=== PATIENT | male | born 1945 | race Caucasian/White ===

== ENCOUNTER 2023-02-04 23:17 | Emergency (ER) | payer MEDICARE ==
[~2023-02-04] VITALS: Ht 170.2 cm; Wt 75.0 kg
[2023-02-04 23:29] VITALS: TEMP 98.2
[2023-02-04] MEDS ORDERED: ondansetron/PF 4mg/2ml inj IV STA (23:38)
[2023-02-04] MEDS ORDERED: morphine 4 MG/ML inj SYRINge IV STA (23:38)
--- NOTE | 2023-02-04 23:41 | NUR ---
PT HAD CALLED TECH TO GO TO THE BATHROOM, THAN HE COULDNT VOID. 120 MLS IN THE BLADDER. HE IS BREATHING FAST, HE SAYS IT IS BECAUSE HE IS VERY ANXIOUS AND IN A LOT OF PAIN. HE SAID HE GETS THIS WAY WHEN HE IS ANXIOUS AND THAT HE TAKES MEDS FOR IT.
--- NOTE | 2023-02-05 03:23 | NUR ---
HE WANTED TO URINATE BUT WANTED A MALE MALE SENT IN HE IS NOT ABLE TO URINATE AGAIN
[2023-02-05] MEDS ORDERED: ketorolac trometh. 30mg/ml inj. IV ONE (03:40)
[2023-02-05] MEDS ORDERED: normal saline 1000ML IV soln IVB ONE (03:40)
[2023-02-05] MEDS ORDERED: acetaminophen 325mg tablet PO ONE (03:40)
[2023-02-05 05:09] LABS: HEMATOCRIT 41.4 % (42.0-52.0); LYMPHOCYTES # (AUTO) 0.9 X10'3 (1.1-4.8); MONOCYTES # (AUTO) 1.5 X10'3 (0-0.9); NEUTROPHILS # (AUTO) 12.1 X10'3 (1.8-7.7); WHITE BLOOD COUNT 14.5 X10'3 (4.5-11.0)
[2023-02-05 05:10] LABS: ALANINE AMINOTRANSFERASE 33 U/L (12-78); ALBUMIN 3.4 G/DL (3.4-5.0); ALKALINE PHOSPHATASE 110 IU/L (46-116); ANION GAP 9 (8-16); ASPARTATE AMINO TRANSFERASE 32 U/L (10-37); BILIRUBIN,TOTAL 0.7 MG/DL (0.1-1.0); BLOOD UREA NITROGEN 37 MG/DL (7-18); BUN/CREATININE RATIO 25.2 (10.0-20.0); CALCIUM 9.2 MG/DL (8.5-10.1); CHLORIDE 104 MMOL/L (99-107); CREATININE 1.47 MG/DL (0.60-1.10); GLUCOSE 135 MG/DL (70-104); SODIUM 141 MMOL/L (135-145); TOTAL CARBON DIOXIDE 28.3 MMOL/L (24-32); TOTAL PROTEIN 6.8 G/DL (6.4-8.2); eCRCL 39 ML/MIN; eGFR 46 ML/MIN
[2023-02-05 05:11] LABS: BASOPHILS % (AUTO) 0.3 % (0-1); EOSINOPHILS % (AUTO) 0.2 % (0-6); HEMOGLOBIN 13.6 g/dl (14.0-17.9); LYMPHOCYTES % (AUTO) 6.5 % (21-51); MEAN CORPUSCULAR HEMOGLOBIN 31.8 PG (27.0-31.0); MEAN CORPUSCULAR HGB CONC 32.8 g/dL (33.0-36.5); MEAN CORPUSCULAR VOLUME 96.7 FL (78-98); MEAN PLATELET VOLUME 8.2 FL (7.4-10.4); PLATELET COUNT 234 X10'3 (140-440); RED BLOOD COUNT 4.28 X10'6 (4.70-6.10); RED CELL DISTRIBUTION WIDTH 14.3 % (11.5-14.5)
[2023-02-05] MEDS ORDERED: propofol 10mg/ml 20ml vial IV ONE (05:30)
[2023-02-05] MEDS ORDERED: normal saline 1000ml 1,000 ML IV ONE (05:30)
[2023-02-05 06:55] VITALS: BP 140/71; PULSE 80; RESP 20; O2SAT 96
== END 2023-02-05 07:18 | disposition home or self-care (01) ==
LOC: ER 23:18
DX: S43.014A Anterior dislocation of right humerus, initial encounter (principal); S50.311A Abrasion of right elbow, initial encounter; W01.0XXA Fall on same level from slipping, tripping and stumbling without subsequent striking against object, initial encounter; Y93.89 Activity, other specified; Y92.002 Bathroom of unspecified non-institutional (private) residence as the place of occurrence of the external cause; Y99.8 Other external cause status
CPT/HCPCS: 23650; 73030; 73060; 73070; 80053; 85025; 93005; 96361; 96374; 96375; 99285; J1885; J2270; J2405; J2704; J7030; 94760; 96365; A4620